=== PATIENT | male | born 1980 | race Caucasian/White ===

== ENCOUNTER 2021-10-26 09:32 | Emergency (ER) | payer OTHER, MEDICAID, SELFPAY ==
[2021-10-26 09:35] VITALS: BP 151/86; PULSE 87; RESP 14; TEMP 36.4; O2SAT 99; BMI 25.0
--- NOTE | 2021-10-26 09:48 | ED.WOUNDLAC ---
HPI - Wound/Laceration General Chief Complaint: Wound/Laceration Stated Complaint: Staph infection in leg and blood, meds not working Time Seen by Provider: 10/26/21 09:38 Source: patient Mode of arrival: Ambulatory Limitations: no limitations History of Present Illness HPI narrative: Patient is a 41-year-old male. Last year he was in an accident which caused wounds to the front of his right leg. He states that it took a very long time to heal it did seem to completely heal. Several weeks ago it opened up again. He has had some redness and swelling around the area. The same time he was having some left leg swelling as well. A couple days ago he was seen in outside facility. Apparently cultures were obtained. He was discharged home with antibiotics. He does not know the name of this antibiotic. He received notification of a call last evening from that facility. He did not actually speak with anyone the message was relayed to him telling him that the antibiotics that he was sent home on would not work for his infection in that he also had bacteria in his blood. He states that since that last visit his right lower extremity has not worsened but has not improved either. He states that he is having some fatigue. He did smoke heroin yesterday. He does have a history of high blood pressure. Has been on methadone in the past. Is currently not taking any medications. Related Data Home Medications Medication Instructions Recorded Confirmed TRAZODONE HCL (Trazodone HCl) 50 mg PO HS #0 04/20/11 [ZOLIPIDEM] 10 mg PO HS #0 08/14/11 Previous Rx's Medication Instructions Recorded doxycycline hyclate 100 mg tablet 100 mg PO BID 7 Days #14 tab 10/26/21 Allergies Allergy/AdvReac Type Severity Reaction Status Date / Time codeine Allergy Verified 10/26/21 09:39 Review of Systems Constitutional Constitutional: Denies body ache(s), Reports fatigue, Denies fever(s), Denies headache(s) and Reports malaise ENT Ears, Nose, Mouth, and Throat: Denies headache(s) Cardiovascular Cardiovascular: Denies chest pain and Denies dyspnea Respiratory Respiratory: Denies dyspnea Gastrointestinal Gastrointestinal: Reports system reviewed and no additional complaints, except as documented Musculoskeletal Musculoskeletal: Reports system reviewed and no additional complaints, except as documented and Reports as per HPI Integumentary/Breasts Skin/Breast: Reports system reviewed and no additional complaints, except as documented and Reports as per HPI Neurologic Neurologic: Denies headache(s) Endocrine Endocrine: Reports fatigue Hematologic/Lymphatic On Anticoagulants: No Patient History Medical History Anxiety Depression Drug abuse Hypertension Social History Smoking Status: Current every day smoker Smoking Status: Current every day smoker alcohol intake frequency: holidays/special occasions only Substance Use Type: heroin Exam Initial Vital Signs Initial Vital Signs: Vital Signs Temperature 97.6 F 10/26/21 09:35 Pulse Rate 87 10/26/21 09:35 Respiratory Rate 14 10/26/21 09:35 Blood Pressure 151/86 H 10/26/21 09:35 Pulse Oximetry 99 10/26/21 09:35 HENMT Head: normal to inspection and normocephalic Resp Effort & Inspection: normal respiratory effort Auscultation: clear to auscultation bilaterally Cardio Rate: regular rate Rhythm: regular rhythm Skin Other: Patient has 2 wounds on the anterior aspect of his right lower leg. Some surrounding erythema. No drainage. They are each 5 cm x 2 cm. Neuro General: patient alert, patient awake, patient oriented x3 and moves all extremities Extrem Other: Swelling bilateral lower extremities. Psych Appearance: grossly normal and well kempt Course Orders Ordered: ED Orders 10/26/21 09:53 Complete Blood Count AUTO DIFF Stat Comprehensive Metabolic Panel Stat Lactate (Lactic Acid) Stat Lipase Stat Procalcitonin Stat 10/26/21 10:40 Blood Culture Stat Vital Signs Vital signs: Vital Signs - 8 hr 10/26/21 09:35 10/26/21 12:46 Temperature 97.6 F Pulse Rate 87 75 Respiratory Rate 14 18 Blood Pressure 151/86 H 128/79 Pulse Oximetry 99 100 MDM - Wound/Laceration Lab Data Attestation: I reviewed the patient's lab results. Result diagrams: 10/26/21 09:53 10/26/21 09:53 Labs: Lab Results 10/26/21 10/26/21 10/26/21 Range/Units 09:53 09:53 09:53 WBC 4.9 (4.5-11.0) X10^3/uL RBC 3.94 L (4.5-5.9) X10^6/uL Hgb 10.8 L (13.5-17.5) g/dL Hct 32.8 L (41-53) % MCV 83.3 (80-100) fL MCH 27.5 (26-34) PG MCHC 33.0 (30-36) % RDW 13.9 (11.6-14.8) % Plt Count 330 (150-400) X10^3/uL Neut % (Auto) 41.3 L (50-75) % Lymph % (Auto) 33.0 (25-40) % [place] % (Auto) 14.1 H (3-14) % Eos % (Auto) 10.6 H (2-4) % Baso % (Auto) 1.0 (0-2) % Neut # (Auto) 2000 (4789-9289) /uL Lymph # (Auto) 1600 (4532-7853) /uL [place] # (Auto) 700 (0-900) /uL Eos # (Auto) 500 H (0-450) /uL Baso # (Auto) 100 (0-100) /uL Sodium 137 (137-145) mmol/L Potassium 4.3 (3.4-5.1) mmol/L Chloride 99 (98-107) mmol/L Carbon Dioxide 33 H (22-32) mmol/L BUN 16 (9-20) mg/dL Creatinine 0.78 (0.66-1.25) mg/dL Estimated GFR > 60.0 (>60) mL/min BUN/Creatinine Ratio 20.5 (6-22) Glucose 100 (70-100) mg/dL Lactate 0.8 (0.7-2.1) mmol/L Calcium 8.9 (8.4-10.2) mg/dL Total Bilirubin 0.2 (0.2-1.3) mg/dL AST 34 (17-59) IU/L ALT 42 (<50) IU/L Alkaline Phosphatase 98 (38-126) U/L Total Protein 7.9 (6.3-8.2) g/dL Albumin 4.0 (3.5-5.0) g/dL Globulin 3.9 (1.7-4.1) g/dL Albumin/Globulin Ratio 1.0 (1.0-2.8) Lipase (23-300) U/L Procalcitonin (<0.5) ng/mL 10/26/21 Range/Units 09:53 WBC (4.5-11.0) X10^3/uL RBC (4.5-5.9) X10^6/uL Hgb (13.5-17.5) g/dL Hct (41-53) % MCV (80-100) fL MCH (26-34) PG MCHC (30-36) % RDW (11.6-14.8) % Plt Count (150-400) X10^3/uL Neut % (Auto) (50-75) % Lymph % (Auto) (25-40) % [place] % (Auto) (3-14) % Eos % (Auto) (2-4) % Baso % (Auto) (0-2) % Neut # (Auto) (3017-5981) /uL Lymph # (Auto) (5584-2967) /uL [place] # (Auto) (0-900) /uL Eos # (Auto) (0-450) /uL Baso # (Auto) (0-100) /uL Sodium (137-145) mmol/L Potassium (3.4-5.1) mmol/L Chloride (98-107) mmol/L Carbon Dioxide (22-32) mmol/L BUN (9-20) mg/dL Creatinine (0.66-1.25) mg/dL Estimated GFR (>60) mL/min BUN/Creatinine Ratio (6-22) Glucose (70-100) mg/dL Lactate (0.7-2.1) mmol/L Calcium (8.4-10.2) mg/dL Total Bilirubin (0.2-1.3) mg/dL AST (17-59) IU/L ALT (<50) IU/L Alkaline Phosphatase (38-126) U/L Total Protein (6.3-8.2) g/dL Albumin (3.5-5.0) g/dL Globulin (1.7-4.1) g/dL Albumin/Globulin Ratio (1.0-2.8) Lipase 55 (23-300) U/L Procalcitonin 0.07 (<0.5) ng/mL [facility] Narrative Medical decision making narrative: Patient is nontoxic appearing. His labs are reassuring. Vital signs are reassuring. I was able to review the note from his last emergency department visit. It appears that the patient had a culture performed that did show MRSA. He was discharged home on Keflex prior to the results of this culture. According to the note there was an attempt made to contact the patient in order to add Bactrim to his prescription. His electronically transmitted to a pharmacy. There does not appear to be any indication that the actually made contact with the patient. Patient's blood cultures were negative. This is different from the patient stating that he was told that he had bacteria in his blood. Patient states that he was told by his mother who apparently talked with the other facility that he needed to stop the Keflex which he did but he states he was never informed that there was another antibiotic for him to start taking. Because of the mixup with his prior antibiotics. The fact that he only took a partial treatment of his Keflex. Has not done Bactrim and what appears to be MRSA we will send him home on doxycycline. This should treat his MRSA infection. Patient is not septic. This prescription was transmitted to the pharmacy of his choice some patient expressed understanding of this. Was given return precautions and follow-up instructions. He expressed understanding and agreement. Discharge Plan Departure Patient Disposition: Home Clinical Impression: Cellulitis Instructions: DI for Cellulitis -- Adult Activity Restrictions/Additional Instructions: Based on the cultures that were performed at the other hospital we do need to start you on an antibiotic called doxycycline. This antibiotic was electronically transmitted to the [facility] pharmacy in [place]. Please pick it up and start taking it as directed. Contact your primary doctor for a follow-up. Return to the emergency department for any new or worsening symptoms. Prescriptions: New doxycycline hyclate 100 mg tablet 100 mg PO BID 7 Days Qty: 14 0RF No Action TRAZODONE HCL (Trazodone HCl) 50 mg PO HS Qty: 0 0RF [ZOLIPIDEM] 10 mg PO HS Qty: 0 0RF
[2021-10-26 10:03] LABS: Add Manual Diff / Slide Review NO; Basophils Absolute Auto 100 /uL (0-100); Eosinophils Absolute Auto 500 /uL (0-450); Eosinophils Percent Auto 10.6 % (2-4); Hematocrit 32.8 % (41-53); Hemoglobin 10.8 g/dL (13.5-17.5); Lymphocytes Absolute Auto 1600 /uL (1100-4500); Mean Corpuscular Hemoglobin 27.5 PG (26-34); Mean Corpuscular Volume 83.3 fL (80-100); Monocytes Absolute Auto 700 /uL (0-900); Monocytes Percent Auto 14.1 % (3-14); Neutrophils Absolute Auto 2000 /uL (1500-7000); Neutrophils Percent Auto 41.3 % (50-75); Platelet Count 330 X10^3/uL (150-400); Red Blood Cell Count 3.94 X10^6/uL (4.5-5.9); Red Cell Distribution Width 13.9 % (11.6-14.8); White Blood Cell Count 4.9 X10^3/uL (4.5-11.0)
[2021-10-26 10:15] LABS: Alanine Aminotransferase 42 IU/L (<50); Alkaline Phosphatase 98 U/L (38-126); Aspartate Aminotransferase 34 IU/L (17-59); BUN Creatinine Ratio 20.5 (6-22); Bilirubin Total 0.2 mg/dL (0.2-1.3); Blood Urea Nitrogen 16 mg/dL (9-20); Calcium 8.9 mg/dL (8.4-10.2); Carbon Dioxide 33 mmol/L (22-32); Chloride 99 mmol/L (98-107); Estimated Glomerular Filt Rate > 60.0 mL/min (>60); Globulin 3.9 g/dL (1.7-4.1); Glucose 100 mg/dL (70-100); HEMOLYSIS < 15 (0-50); Lipase 55 U/L (23-300); Potassium 4.3 mmol/L (3.4-5.1); Sodium 137 mmol/L (137-145); Total Protein 7.9 g/dL (6.3-8.2)
[2021-10-26 10:16] LABS: Lactate (Lactic Acid) 0.8 mmol/L (0.7-2.1)
[2021-10-26 10:32] LABS: Procalcitonin 0.07 ng/mL (<0.5)
[2021-10-26 12:46] VITALS: BP 128/79; PULSE 75; RESP 18; O2SAT 100
== END 2021-10-26 12:47 | disposition home or self-care (01) ==
PROVIDERS: Emergency Provider Emergency Medicine
DX: L03.115 Cellulitis of right lower limb (principal); B95.62 Methicillin resistant Staphylococcus aureus infection as the cause of diseases classified elsewhere; F17.200 Nicotine dependence, unspecified, uncomplicated
CPT/HCPCS: 36415; 80053; 83605; 83690; 84145; 85025; 87040; 99283

== ENCOUNTER 2021-12-29 11:19 | Emergency (ER) | payer OTHER, MEDICAID, SELFPAY ==
[2021-12-29] VITALS (8 sets, daily range): BP systolic 125–151; BP diastolic 73–78; PULSE 83–104; RESP 14; TEMP 36.6; O2SAT 95–100; BMI 25.7
--- NOTE | 2021-12-29 12:48 | PC.NURSE ---
pt in bathroom x 2 attempts to call back to er room at [phone] and [phone]
--- NOTE | 2021-12-29 14:45 | DI.RAD.S_ITS ---
PROCEDURE: XR FOOT RT MIN 3V INDICATIONS: Pain and swelling, concern for osteomyelitis TECHNIQUE: 3 views of the foot were acquired. COMPARISON: None. FINDINGS: Bones: No fractures or dislocations. No suspicious bony lesions. Soft tissues: No tibiotalar joint effusion. Achilles tendon appears normal. IMPRESSION: Although no bony erosions are identified, plain film radiography is relatively insensitive in the acute phases of osteomyelitis and may not demonstrate radiographic changes for 15 days. If acute osteomyelitis is of clinical concern, nuclear medicine regional bone scan or MRI is recommended. Dictated by: Jazmin Tellez M.D. on 12/29/2021 at 15:17 Approved by: Jazmin Tellez M.D. on 12/29/2021 at 15:18
--- NOTE | 2021-12-29 14:45 | DI.RAD.S_ITS ---
PROCEDURE: XR TIBIA FUBULA RT 2V INDICATIONS: Swelling and pain, concern for osteomyelitis TECHNIQUE: 2 views of the tibia and fibula were acquired. COMPARISON: None. FINDINGS: Bones: No fractures or dislocations. No suspicious bony lesions. Soft tissues: There is diffuse soft tissue swelling throughout the subcutaneous tissues. IMPRESSION: Soft tissue swelling without underlying bony abnormality. Dictated by: Jazmin Tellez M.D. on 12/29/2021 at 15:18 Approved by: Jazmin Tellez M.D. on 12/29/2021 at 15:19
--- NOTE | 2021-12-29 14:47 | DI.US.S_ITS ---
PROCEDURE: US PERIPH VENOUS LOW EXTREM RT INDICATIONS: SEVERE EDEMA TECHNIQUE: Real-time imaging, as well as color and pulse Doppler interrogation, were performed of the lower extremity deep veins from the inguinal ligament to the popliteal fossa. COMPARISON: None. FINDINGS: The common femoral, femoral and popliteal veins are normally compressible, and free of intraluminal thrombus. Color and pulse Doppler demonstrate normal phasic intraluminal flow. There is normal augmentation response to distal compression maneuver. There is marked edema within the overlying subcutaneous tissues. IMPRESSION: No deep vein thrombosis of the right lower extremity. Extensive edema throughout the subcutaneous tissues. Dictated by: Jazmin Tellez M.D. on 12/29/2021 at 15:19 Approved by: Jazmin Tellez M.D. on 12/29/2021 at 15:19
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
[2021-12-29 15:41] LABS: Add Manual Diff / Slide Review NO; Basophils Absolute Auto 100 /uL (0-100); Basophils Percent Auto 0.7 % (0-2); Eosinophils Absolute Auto 300 /uL (0-450); Eosinophils Percent Auto 4.3 % (2-4); Hematocrit 34.2 % (41-53); Hemoglobin 11.5 g/dL (13.5-17.5); Lymphocytes Absolute Auto 1600 /uL (1100-4500); Mean Corpuscular HGB Conc 33.6 % (30-36); Mean Corpuscular Hemoglobin 27.4 PG (26-34); Mean Corpuscular Volume 81.6 fL (80-100); Monocytes Absolute Auto 800 /uL (0-900); Monocytes Percent Auto 9.9 % (3-14); Neutrophils Absolute Auto 4900 /uL (1500-7000); Neutrophils Percent Auto 64.1 % (50-75); Platelet Count 282 X10^3/uL (150-400); Red Blood Cell Count 4.19 X10^6/uL (4.5-5.9); Red Cell Distribution Width 14.4 % (11.6-14.8); White Blood Cell Count 7.6 X10^3/uL (4.5-11.0)
[2021-12-29] MEDS: TET,DIPH,PERTUSS(ACELL),VAC/PF 0.5 ML SYRINGE IM (15:45)
[2021-12-29 15:54] LABS: Lactate (Lactic Acid) 1.1 mmol/L (0.7-2.1)
[2021-12-29 15:57] LABS: Alanine Aminotransferase 39 IU/L (<50); Albumin 4.2 g/dL (3.5-5.0); Albumin Globulin Ratio 1.1 (1.0-2.8); Alkaline Phosphatase 94 U/L (38-126); Aspartate Aminotransferase 37 IU/L (17-59); BUN Creatinine Ratio 27.3 (6-22); Bilirubin Total 0.4 mg/dL (0.2-1.3); Blood Urea Nitrogen 21 mg/dL (9-20); C-Reactive Protein Quant 4.9 mg/dL (<1.0); Calcium 8.7 mg/dL (8.4-10.2); Carbon Dioxide 31 mmol/L (22-32); Chloride 97 mmol/L (98-107); Estimated Glomerular Filt Rate > 60.0 mL/min (>60); Globulin 3.8 g/dL (1.7-4.1); Glucose 96 mg/dL (70-100); HEMOLYSIS < 15 (0-50); Potassium 4.1 mmol/L (3.4-5.1); Sodium 135 mmol/L (137-145)
[2021-12-29 16:04] LABS: Erythrocyte Sedimentation Rate 58 MM/HR (0-15)
== END 2021-12-29 16:20 | disposition home or self-care (01) ==
PROVIDERS: Emergency Provider Physician Assistant
DX: L03.115 Cellulitis of right lower limb (principal); S91.131A Puncture wound without foreign body of right great toe without damage to nail, initial encounter; F17.200 Nicotine dependence, unspecified, uncomplicated; W45.0XXA Nail entering through skin, initial encounter; Y93.89 Activity, other specified; Z23 Encounter for immunization
CPT/HCPCS: 36415; 73590; 73630; 80053; 83605; 85025; 85651; 86140; 87040; 90471; 93971; 99284; 90715

== ENCOUNTER 2022-05-23 17:30 | Emergency (ER) | payer OTHER, MEDICAID, SELFPAY ==
[2022-05-23 17:43] VITALS: BP 171/99; PULSE 127; RESP 14; TEMP 36.7; O2SAT 100; BMI 24.4
[2022-05-23] MEDS: TET,DIPH,PERTUSS(ACELL),VAC/PF 0.5 ML SYRINGE IM (17:56)
[2022-05-23] MEDS: cephALEXin 250 MG CAPSULE 1000 MG PO (17:57)
[2022-05-23] MEDS: DOXYCYCLINE HYCLATE 100 MG TABLET PO (17:57)
[2022-05-23] MEDS: ONDANSETRON 4 MG ODT SL (17:57)
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
[2022-05-23 18:34] VITALS: BP 166/88; PULSE 99; RESP 20; O2SAT 99
== END 2022-05-23 18:35 | disposition home or self-care (01) ==
PROVIDERS: Emergency Provider Nurse Practitioner Critical Care Medicine
DX: Z02.89 Encounter for other administrative examinations (principal); R11.2 Nausea with vomiting, unspecified; Z23 Encounter for immunization
CPT/HCPCS: 90471; 99283; 90715

== ENCOUNTER 2023-02-12 21:48 | Emergency (ER) | payer OTHER, MEDICAID, SELFPAY ==
[2023-02-12 21:55] VITALS: BP 164/87; PULSE 71; RESP 16; TEMP 36.6; O2SAT 99
--- NOTE | 2023-02-12 21:55 | ED_ITS ---
HPI - General Adult General Chief complaint: Medical Clearance Stated complaint: fit for snf Time Seen by Provider: 02/12/23 21:54 History of Present Illness HPI narrative: 42-year-old male smoker with chronic right lower extremity wound presents by police for medical clearance prior to incarceration. Nearly 2 hours prior to his arrival he was placed under arrest and states that he ingested a small baggy which contain a mixture of fentanyl and methamphetamines. He has been under p olice control for the duration. He is awake alert and oriented and has had no worsening obtundation or sleepiness. He denies any chest pain or shortness of breath. She denies nausea, vomiting or diarrhea. He is had no fever or chills. He states he is had a poorly healing wound on his right anterior ramirez for least 1 year and denies any increased redness drainage or pain Related Data Home Medications Medication Instructions Recorded Confirmed TRAZODONE HCL (Trazodone HCl) 50 mg PO HS ##0 04/20/11 [ZOLIPIDEM] 10 mg PO HS ##0 08/14/11 Previous Rx's Medication Instructions Recorded ciprofloxacin HCl 750 mg tablet 750 mg PO BID #14 tabs 12/29/21 doxycycline hyclate 100 mg tablet 100 mg PO BID #20 tabs 02/12/23 Allergies Allergy/AdvReac Type Severity Reaction Status Date / Time No Known Drug Allergies Allergy Verified 05/23/22 17:47 Review of Systems Review of Systems Narrative: GENERAL: Denies chills, fatigue, malaise, fever, sweats. HEENT: Denies sinus pain, ear pain, sore throat, difficulty swallowing, dizziness. RESPIRATORY: Denies dyspnea, cough, wheezing, hemoptysis, sputum. CARDIOVASCULAR: Denies chest pain, palpitations, orthopnea, edema, GASTROINTESTINAL: Denies nausea, vomiting, abdominal pain, diarrhea, constipation, melena. : Denies dysuria, frequency, incontinence, hematuria, urinary retention. MUSCULOSKELETAL: denies weakness, joint pain, or bony pain SKIN: See HPI NEUROLOGIC: Denies weakness, headache, numbness, change in speech, confusion, seizures, incoordination. PSYCHIATRIC: No concerning psychosocial issues. 12 point review of systems is negative except for those stated above Patient History Medical History Anxiety Depression Drug abuse Hypertension Social History Smoking Status: Current every day smoker Smoking Status: Current every day smoker alcohol intake frequency: holidays/special occasions only Substance Use Type: heroin Exam Narrative Exam Narrative: GENERAL: [42] year old patient appears stated age. Well-developed patient, in no obvious distress. GCS 15, alert and oriented x3, speaking clearly, not slurring words, walking a straight line, no signs of respiratory distress HEAD: Atraumatic. Normocephalic. EYES: Pupils equal round and reactive. Extraocular motions intact. No scleral icterus. No injection or drainage. ENT: Nose without bleeding, purulent drainage. Throat without erythema, tonsillar hypertrophy or exudate. Airway patent. NECK: Trachea midline. Non tender CARDIOVASCULAR: Regular rate and rhythm without murmurs, gallops, or rubs. RESPIRATORY: Clear to auscultation. Breath sounds equal bilaterally. No wheezes, rales, or rhonchi. GASTROINTESTINAL: Abdomen soft, non-tender, nondistended. EXTREMITIES: Poorly healing wound right anterior ramirez with a small, 0.25 x 2 cm ulcerated lesion with minimal drainage which has been cultured. There is minimal surrounding erythema, no induration or fluctuance, no lymphangitis BACK: Nontender without deformity or crepitance. No flank tenderness. NEURO: AOx3. SKIN: No rash or erythema of visible areas Initial Vital Signs Initial Vital Signs: Vital Signs Temperature 97.8 F 02/12/23 21:55 Pulse Rate 71 02/12/23 21:55 Respiratory Rate 16 02/12/23 21:55 Blood Pressure 164/87 H 02/12/23 21:55 Pulse Oximetry 99 02/12/23 21:55 Oxygen Delivery Method Room Air 02/12/23 21:55 Course Orders Ordered: ED Orders 02/12/23 21:51 Wound Culture and Gram Stain Stat Discontinued Medications Doxycycline Hyclate (Doxycycline Hyclate 100 Mg Tablet) 100 mg PO NOW ONE Stop: 02/12/23 21:56 Vital Signs Vital signs: Vital Signs - 8 hr 02/12/23 21:55 Temperature 97.8 F Pulse Rate 71 Respiratory Rate 16 Blood Pressure 164/87 H Pulse Oximetry 99 Oxygen Delivery Method Room Air Medical Decision Making [facility] Narrative Medical decision making narrative: [42] year old patient presents with possible ingestion of fentanyl 2 hours ago and chronic leg wound Multiple etiologies for patient's symptoms considered including, but not limited to: [Potential overdose versus nontoxic ingestion versus infected wound versus other] Prior Charts reviewed in our EMR Primary Historian: patient Patient has been in police custody for 2 hours post ingestion and reports possible fentanyl versus amphetamine. He has no respiratory distress is not obtunded and is alert and oriented. No indication for further lab workup or evaluation. He is had a poorly healing wound on his right anterior ramirez for over 1 year and denies any increasing pain, drainage or redness, has been cultured and he has been placed on antibiotics. He is appropriate for incarceration at this time Findings and discharge diagnosis discussed with patient/family followed by johanna balization of understanding Return precautions discussed with patient/family whom verbalize understanding of diagnosis and plan Discharge Plan Departure Patient Disposition: Home Clinical Impression: Medical clearance for incarceration, Leg wound, right, Ingestion of unknown nonmedicinal substance Instructions: DI for Wound Infection Activity Restrictions/Additional Instructions: *You have been diagnosed with [Medical clearance for incarceration, ingestion fentanyl, possible infection of chronic leg wound] ] *What to do: *Please continue to take your regular medications as directed. [ ] New medication prescriptions sent to your pharmacy: [ ] [x New medication written as a paper prescription [ ] No new medications given *Please follow up with your primary care provider in 2-3 days, call for an appointment. Let them know you were seen in the Emergency Department and that we ask that you be seen in follow up. We will electronically transmit a record of today's note if your PCP is in our system *If you do not have a primary care provider please contact the [facility] Resource line at [phone]. They will ask some questions about your medical history and help get you set up with a doctor in the community. *Return to Emergency Department if you should have any new, worsening or concerning symptoms, such as [fever greater than 101 F, shaking chills, worsening pain, persistent vomiting or other bothersome symptoms] Prescriptions: New doxycycline hyclate 100 mg tablet 100 mg PO BID Qty: 20 0RF No Action TRAZODONE HCL (Trazodone HCl) 50 mg PO HS Qty: 0 [ZOLIPIDEM] 10 mg PO HS Qty: 0 ciprofloxacin HCl 750 mg tablet 750 mg PO BID Qty: 14 0RF Stand Alone Forms: Patient Portal/API
== END 2023-02-12 22:11 | disposition home or self-care (01) ==
PROVIDERS: Emergency Provider Emergency Medicine
DX: Z00.8 Encounter for other general examination (principal); S81.801A Unspecified open wound, right lower leg, initial encounter; T65.91XA Toxic effect of unspecified substance, accidental (unintentional), initial encounter
CPT/HCPCS: 87070; 87075; 87077; 87147; 87186; 87205; 99281; 99282